=== PATIENT | male | born 1950 | race Caucasian/White ===

== ENCOUNTER 2016-04-24 09:07 | Emergency (ER) | payer OTHER ==
--- NOTE | 2016-04-24 09:56 | DIAGNOSTIC IMAGING REPORT ---
PROCEDURE: XR SHOULDER 2 OR MORE VW-LEFT INDICATION: Fell on ice, initial encounter TECHNIQUE: Three views. COMPARISON: None. FINDINGS: Nondisplaced fracture of the distal clavicle. Severe degenerative changes of the glenohumeral and AC joints. Old left rib fractures. Soft tissues are unremarkable IMPRESSION: 1. Nondisplaced distal left clavicle fracture 2. Severe glenohumeral and AC joint degenerative changes
--- NOTE | 2016-04-24 10:24 | ED NURSING NOTES ---
Clinical Report - Nurses [facility] [place] [address] 04/24/2016 9:08 [id number] TRI[facility] Triage time 09:Apr 24 2016. Acuity: LEVEL 3. Chief Complaint: INJURY TO LEFT SHOULDER. Alert. WILVER COMA SCORE: [place] Coma Scale: 15- eyes open spontaneously (4); best verbal response- oriented x 4 (5); best motor response- obeys commands (6). --09:38 Bonilla Mulligan R.N. 09:30 04/24/16. BP: 133/84. HR: 94. RR: 20. O2 saturation: 96%. Temp: 98.2 F (oral). Pain level now: 09/28. --09:38 Bonilla Mulligan R.N. Weight: 86.1 kg stated. Height/Length: 73 inches Per Patient. BMI: 25. --09:35 Bonilla Mulligan R.N. Medications Thyroid Hormone 1 pill, daily. --09:34 Bonilla Mulligan R.N. Allergies No Known Drug Allergy. --15:01 Bonilla Mulligan R.N. History Historian: patient. ( (L) Shoulder Pain after GLF on the ice this morning.). This occurred today (about 4 1/2 hours ago). Occurred at home. Mechanism of injury: fell. He has had weakness of the left arm. Treatment SONOGRAPHY TECHNICIAN: None. PAST MEDICAL HX: Tetanus status: unknown. Immunizations: status is unknown. SOCIAL HX: Heavy tobacco smoker (cigarette)- 1 pack per day. No drug use. No infectious disease exposure. ABUSE ASSESSMENT: No report of abuse. FALL RISK ASSESSMENT: Fall risk assessment completed. No fall risk identified. NUTRITIONAL RISK ASSESSMENT: The nutritional risk assessment revealed no deficiencies. FUNCTIONAL ASSESSMENT: Functional assessment: no impairments noted. LEARNING NEEDS ASSESSMENT: The learning needs assessment revealed no barriers. SKIN INTEGRITY ASSESSMENT: Skin integrity risk assessment completed. No skin integrity risk identified. --09:38 Bonilla Mulligan R.N. PROBLEMS: Fall. Contusion. Thyroid Disease. --09:37 Bonilla Mulligan R.N. ADDITIONAL SURGERIES: From war injuries. --09:37 Bonilla Mulligan R.N. Interventions ID band on patient. To treatment room. --09:38 Bonilla Mulligan R.N. PHYSICAL ASSESSMENT Ambulatory to room. GENERAL / NEURO / PSYCH: Oriented X 4. Appears in pain. EXTREMITIES: Limited ROM present in the left shoulder and left upper arm. Capillary refill is less than 2 seconds in the extremities. Extremity pulses are within normal limits. Neuro-vascular status intact to the extremity. Left shoulder: tenderness. SKIN: Skin intact. Skin is warm and dry. --09:39 Bonilla Mulligan R.N. NURSING PROGRESS NOTES Patient gowned. Reassurance given. Patient identifiers checked. Call light placed in reach. Side rails up x 1. Bed placed in lowest position. Brakes of bed on. Patient ready for evaluation- chart flagged and ED physician notified. --09:39 Bonilla Mulligan R.N. Patient walked to radiology with tech. (09:35 Apr 24 2016). --09:40 Bonilla Mulligan R.N. late entry - 10:10. ( arm sling applied to left arm.). --11:34 Monica Mendez, BRITTNEY Tech1 10:20 04/24/2016 Toradol (Ketorolac Tromethamine) IM 60 mg given. Given in the right ventral gluteus. Allergies verified and confirmed 5 rights. --15:00 Bonilla Mulligan R.N. DISPOSITION / DISCHARGE <<STRICKEN ENTRY-- 14:46 04/24/16. BP: 128/82. HR: 86. RR: 16. O2 saturation: 99% on room air. Temp: 98.6 F. Pain level now: 08/28. --14:50 Bonilla Mulligan R.N. --END STRIKE>> Other. --14:52 Bonilla Mulligan R.N. Departure time: 1040. --14:51 Bonilla Mulligan R.N. <<STRICKEN ENTRY-- 14:52 04/24/16. BP: 128/82. HR: 89. RR: 16. O2 saturation: 99% on room air. Temp: 98.6 F. Pain level now: 08/28. --14:53 Bonilla Mulligan R.N. --END STRIKE>> Correction. --14:54 Bonilla Mulligan R.N. 10:35 04/24/16. BP: 128/82. HR: 86. RR: 16. O2 saturation: 99% on room air. Temp: 98.6 F (oral). Pain level now: 08/28. --14:56 Bonilla Mulligan R.N. 10:40. Condition at departure: improved. No learning barriers present. Discharge instructions provided and reviewed with the patient. Reviewed medication(s) (prescription given to pt). Reviewed referral to family practice. Patient verbalized understanding. Written instructions provided in [place]er. The patient was discharged by the physician. He was discharged home. He left the Emergency Department ambulatory and via private vehicle. Patient driving. --14:58 Bonilla Mulligan R.N. Locked/Released at 04/24/2016 15:02 by Bonilla Mulligan R.N.
--- NOTE | 2016-04-24 10:24 | ED NURSING NOTES ---
Clinical Report - Nurses [facility] [place] [address] 04/24/2016 9:08 [id number] TRI[facility] Triage time 09:Apr 24 2016. Acuity: LEVEL 3. Chief Complaint: INJURY TO LEFT SHOULDER. Alert. WILVER COMA SCORE: [place] Coma Scale: 15- eyes open spontaneously (4); best verbal response- oriented x 4 (5); best motor response- obeys commands (6). --09:38 Bonilla Mulligan R.N. 09:30 04/24/16. BP: 133/84. HR: 94. RR: 20. O2 saturation: 96%. Temp: 98.2 F (oral). Pain level now: 09/28. --09:38 Bonilla Mulligan R.N. Weight: 86.1 kg stated. Height/Length: 73 inches Per Patient. BMI: 25. --09:35 Bonilla Mulligan R.N. Medications Thyroid Hormone 1 pill, daily. --09:34 Bonilla Mulligan R.N. Allergies No Known Drug Allergy. --15:01 Bonilla Mulligan R.N. History Historian: patient. ( (L) Shoulder Pain after GLF on the ice this morning.). This occurred today (about 4 1/2 hours ago). Occurred at home. Mechanism of injury: fell. He has had weakness of the left arm. Treatment RN ED: None. PAST MEDICAL HX: Tetanus status: unknown. Immunizations: status is unknown. SOCIAL HX: Heavy tobacco smoker (cigarette)- 1 pack per day. No drug use. No infectious disease exposure. ABUSE ASSESSMENT: No report of abuse. FALL RISK ASSESSMENT: Fall risk assessment completed. No fall risk identified. NUTRITIONAL RISK ASSESSMENT: The nutritional risk assessment revealed no deficiencies. FUNCTIONAL ASSESSMENT: Functional assessment: no impairments noted. LEARNING NEEDS ASSESSMENT: The learning needs assessment revealed no barriers. SKIN INTEGRITY ASSESSMENT: Skin integrity risk assessment completed. No skin integrity risk identified. --09:38 Bonilla Mulligan R.N. PROBLEMS: Fall. Contusion. Thyroid Disease. --09:37 Bonilla Mulligan R.N. ADDITIONAL SURGERIES: From war injuries. --09:37 Bonilla Mulligan R.N. Interventions ID band on patient. To treatment room. --09:38 Bonilla Mulligan R.N. PHYSICAL ASSESSMENT Ambulatory to room. GENERAL / NEURO / PSYCH: Oriented X 4. Appears in pain. EXTREMITIES: Limited ROM present in the left shoulder and left upper arm. Capillary refill is less than 2 seconds in the extremities. Extremity pulses are within normal limits. Neuro-vascular status intact to the extremity. Left shoulder: tenderness. SKIN: Skin intact. Skin is warm and dry. --09:39 Bonilla Mulligan R.N. NURSING PROGRESS NOTES Patient gowned. Reassurance given. Patient identifiers checked. Call light placed in reach. Side rails up x 1. Bed placed in lowest position. Brakes of bed on. Patient ready for evaluation- chart flagged and ED physician notified. --09:39 Bonilla Mulligan R.N. Patient walked to radiology with tech. (09:35 Apr 24 2016). --09:40 Bonilla Mulligan R.N. late entry - 10:10. ( arm sling applied to left arm.). --11:34 Monica Mendez, BRITTNEY Tech1 10:20 04/24/2016 Toradol (Ketorolac Tromethamine) IM 60 mg given. Given in the right ventral gluteus. Allergies verified and confirmed 5 rights. --15:00 Bonilla Mulligan R.N. DISPOSITION / DISCHARGE <<STRICKEN ENTRY-- 14:46 04/24/16. BP: 128/82. HR: 86. RR: 16. O2 saturation: 99% on room air. Temp: 98.6 F. Pain level now: 08/28. --14:50 Bonilla Mulligan R.N. --END STRIKE>> Other. --14:52 Bonilla Mulligan R.N. Departure time: 1040. --14:51 Bonilla Mulligan R.N. <<STRICKEN ENTRY-- 14:52 04/24/16. BP: 128/82. HR: 89. RR: 16. O2 saturation: 99% on room air. Temp: 98.6 F. Pain level now: 08/28. --14:53 Bonilla Mulligan R.N. --END STRIKE>> Correction. --14:54 Bonilla Mulligan R.N. 10:35 04/24/16. BP: 128/82. HR: 86. RR: 16. O2 saturation: 99% on room air. Temp: 98.6 F (oral). Pain level now: 08/28. --14:56 Bonilla Mulligan R.N. 10:40. Condition at departure: improved. No learning barriers present. Discharge instructions provided and reviewed with the patient. Reviewed medication(s) (prescription given to pt). Reviewed referral to family practice. Patient verbalized understanding. Written instructions provided in [place]. The patient was discharged by the physician. He was discharged home. He left the Emergency Department ambulatory and via private vehicle. Patient driving. --14:58 Bonilla Mulligan R.N. Locked/Released at 04/24/2016 15:02 by Bonilla Mulligan R.N.
--- NOTE | 2016-04-24 10:24 | ED ORDER SUMMARY ---
..... Patient: ALANNA MALIK OrderSheet [facility] VisitID: [id number] [place] [address] 65y, M Registration Date/Time: 04/24/2016 ORDER SHEET Weight: 86.1 kg (stated) Allergies: No Known Drug Allergy GENERAL ORDERS: Shoulder 2V or more Left Urgent (09:29 04/24/2016 Neal Ramsay verbal order read back to Carmenza Hodges) (Ack 9:48 LNations ER Tech1) (10:34 Neal R.N.) Sling - arm (10:19 04/24/2016 Carmenza Hodges) (10:34 Neal Campbell.N.) MEDICATION ORDERS: Toradol IM 60 mg (NOW) (14:59 04/24/2016 Neal Ramsay verbal order read back to Carmenza Hodges) (15:00 Neal R.N.) IV FLUIDS: Toradol IV 30 mg (NOW) (09:44 04/24/2016 Carmenza Hodges) (Cancelled: Other10:35 Neal R.NCassandra) ORDER SHEET NOTES: [Electronically signed by Bonilla Mulligan R.N. (15:02 04/24/2016)] [Electronically signed by Mckinley King Dr. (13:37 04/30/2016)] [Electronically locked/signed by Bonilla Mulligan R.N. (15:02 04/24/2016)]
--- NOTE | 2016-04-24 10:24 | ED CLINICAL REPORT ---
Clinical Report - Physicians/Mid Levels [facility] [address] [place] [address] 04/24/2016 9:08 Patient: ALANNA MAILK Arrived- By private vehicle. Historian- patient. HISTORY OF PRESENT ILLNESS Chief Complaint: Injury to left shoulder. The injury happened just prior to arrival and today. Occurred at home. Fell (slipped on ice walking). Patient is experiencing moderate pain. Patient denies injury to the head or neck. No other injury. ( reports no pain or injury to the head, neck, chest, abdomen, pelvis, back, or other extremities.). REVIEW OF SYSTEMS No tingling, numbness or weakness. All systems otherwise negative, except as recorded above. PAST HISTORY See nurses notes. Tetanus immunization status is up-to-date. SOCIAL HISTORY Smoker- current status unknown. No alcohol use or drug use. No recent travel. Is a local resident. PHYSICAL EXAM Appearance: Alert. Oriented X3. No acute distress. Head: Head atraumatic. No scalp tenderness. No swelling of the head or ecchymosis of the head. Eyes: Pupils equal, round and reactive to light. Eyes normal inspection. (No Aj sign or raccoon eyes). ENT: No hemotympanum. Ears normal. Nose normal. Pharynx normal. Neck: Normal inspection. Neck supple. C-spine non-tender. CVS: Normal heart rate and rhythm. Heart sounds normal. Pulses normal. Respiratory: No respiratory distress. Breath sounds normal. Chest nontender. Abdomen: No visible injury. Soft and nontender. Bowel sounds normal. No mass. Back: Normal inspection. No tenderness. ROM normal. No vertebral point tenderness. (and no step-offs or crepitus.). Skin: Skin intact. Skin warm and dry. Normal skin color. Normal skin turgor. Extremities: (Patient has mild tenderness over the before meals joint and distal clavicle. No crepitus. No bony other abnormalities. Patient is neurovascularly intact. Neck, arm, elbow, wrist, forearm, hands are nontender and atraumatic. Strength is 5 out of 5 and symmetrical to the contralateral side. compartments are soft. No overlying skin changes.). Neuro, Vascular and Tendons: Sensation intact. Motor intact. Vascular status intact. Tendon function intact. Tendon visualized, uninjured. Neuro: Oriented X 3. No motor deficit. No sensory deficit. PROGRESS AND PROCEDURES Course of Care: The patient is a pleasant 65-year-old male with no pertinent past medical history presenting for evaluation of ground-level fall after slipping on the ice. Patient had no preceding symptoms. fall is purely mechanical. Patient will be evaluated with radiographs of the left shoulder that were ordered on triage. The patient is resting in bed in no acute distress. No neurovascular compromise at this time. At this time differential diagnosis includes clavicular fracture, before meals joint separation, or Proximal humerus fracture. Workup shows patient to have distal clavicular fracture. Minimally displaced. Had discussion with patient in regards to workup, diagnosis, home care, follow-up, and return precautions. All questions answered. The patient expressed understanding of these instructions and is agreeable to them. Prior to patient's discharge, he was noted to be in a sling. Patient is resting in no acute distress. Unable to provide patient with sedating type medications as he is reporting to be driving home by himself. Patient's a good outpatient candidate. Disposition: Discharged. Condition: good. CLINICAL IMPRESSION 04/24/2016 09:30 BP: 133/84. HR: 94. RR: 20. O2 saturation: 96%. Temp: 98.2 F. Pain level now: 6/10. Blood pressure normal. Oxygen saturation normal. Non-displaced left distal clavicle fracture (acute). INSTRUCTIONS Limit use of left hand until released (by your doctor). Warnings: GENERAL WARNINGS: Return or contact your physician immediately if your condition worsens or changes unexpectedly, if not improving as expected, or if other problems arise. Specifically return if pain, vomiting, bleeding, breathing difficulty or fever. Your Current Medications: CONTINUE TAKING THE FOLLOWING MEDICATIONS: Thyroid Hormone* : 1 pill daily. Prescription Medications: Percocet 5 mg/325 mg: take 1 tablet orally every 6 hours as needed for pain. Dispense twenty (20). No refill. Substitution is permissible. Follow-up: Return to the emergency department as needed. Follow up with your doctor in three days. Reason for referral: recheck today's concerns. Summary of care provided to patient via paper. Follow up with doctor. Screening today revealed the patient's blood pressure to be in the normal range. The patient should follow up with a primary care provider for blood pressure management. Understanding of the discharge instructions verbalized by patient. Follow-up with: Follow up. Reason for referral: Call this office for follow up: [phone]. Summary of care provided to patient via paper. (Electronically signed by Mckinley King Dr. 04/30/2016 13:37)
--- NOTE | 2016-04-24 10:24 | ED ORDER SUMMARY ---
..... Patient: ALANNA MALIK OrderSheet [facility] VisitID: [id number] [place] [address] 65y, M Registration Date/Time: 04/24/2016 ORDER SHEET Weight: 86.1 kg (stated) Allergies: No Known Drug Allergy GENERAL ORDERS: Shoulder 2V or more Left Urgent (09:29 04/24/2016 Neal Ramsay verbal order read back to Carmenza Hodges) (Ack 9:48 LNations ER Tech1) (10:34 Neal R.N.) Sling - arm (10:19 04/24/2016 Carmenza Hodges) (10:34 Neal Campbell.N.) MEDICATION ORDERS: Toradol IM 60 mg (NOW) (14:59 04/24/2016 Neal Ramsay verbal order read back to Carmenza Hodges) (15:00 Neal R.N.) IV FLUIDS: Toradol IV 30 mg (NOW) (09:44 04/24/2016 Carmenza Hodges) (Cancelled: Other10:35 Neal R.NCassandra) ORDER SHEET NOTES: [Electronically signed by Bonilla Mulligan R.N. (15:02 04/24/2016)] [Electronically signed by Mckinley King Dr. (13:37 04/30/2016)] [Electronically locked/signed by Bonilla Mulligan R.N. (15:02 04/24/2016)]
--- NOTE | 2016-04-30 13:38 | ED MAR SUMMARY ---
..... Medication Administration Record [address] [place] [address] Patient: ALANNA MALIK Visit ID: [id number] 65y, M Weight: 86.1 kg Height/Length: 73 in BMI: 25 ALLERGIES: No Known Drug Allergy Given 10:20 04/24/2016 Bonilla Mulligan R.N. Medication Administered: TORADOL [IM] (KETOROLAC TROMETHAMINE), Dose: 60 mg IM. Medication Ordered: Toradol IM 60 mg (NOW).
--- NOTE | 2016-04-30 13:38 | ED MED RECONCILIATION SUMMARY ---
Patient: ALANNA MALIK Medication Reconciliation Report [facility] VisitID: [id number] [address] [place] [address] 65y, M Registration Date/Time: 04/24/2016 Weight: 86.1 kg Height/Length: 73 in. BMI: 25.0 ALLERGIES: No Known Drug Allergy The patient's Home Medications are listed below: CONTINUE TAKING THE FOLLOWING MEDICATIONS: Thyroid Hormone 1 pill, daily The source(s) of the original Home Medication information: Not obtained. The following Medications were given to the patient in the Emergency Department: Toradol [IM] IM 60 mg, administered: 04/24/2016 10:20:00 AM The following Medications were prescribed to the patient: Percocet 5 mg/325 mg: take 1 tablet orally every 6 hours as needed for pain. Dispense twenty (20). No refill. Substitution is permissible. -- Mckinley King Dr.
--- NOTE | 2016-04-30 13:38 | ED DISCHARGE INSTRUCTIONS ---
Patient: ALANNA MALIK General Instructions [facility] VisitID: [id number] [place] [address] 65y, M Registration Date/Time: 04/24/2016 04/24/2016 09:30 BP: 133/84. HR: 94. RR: 20. O2 saturation: 96%. Temp: 98.2 F. Pain level now: 6/10. Blood pressure normal. Oxygen saturation normal. Non-displaced left distal clavicle fracture (acute). INSTRUCTIONS Limit use of left hand until released (by your doctor). Warnings: GENERAL WARNINGS: Return or contact your physician immediately if your condition worsens or changes unexpectedly, if not improving as expected, or if other problems arise. Specifically return if pain, vomiting, bleeding, breathing difficulty or fever. Your Current Medications: CONTINUE TAKING THE FOLLOWING MEDICATIONS: Thyroid Hormone* : 1 pill daily. Prescription Medications: Percocet 5 mg/325 mg: take 1 tablet orally every 6 hours as needed for pain. Dispense twenty (20). No refill. Substitution is permissible. Follow-up: Return to the emergency department as needed. Follow up with your doctor in three days. Reason for referral: recheck today's concerns. Summary of care provided to patient via paper. Follow up with doctor. Screening today revealed the patient's blood pressure to be in the normal range. The patient should follow up with a primary care provider for blood pressure management. Understanding of the discharge instructions verbalized by patient. Follow-up with: Follow up. Reason for referral: Call this office for follow up: [phone]. Summary of care provided to patient via paper. ADDITIONAL INFORMATION Fracture:Clavicle There is a break (fracture) in your collarbone. This will cause swelling, pain and bruising. The first 3-4 weeks will be the most painful because deep breathing, coughing or changing position from sitting to lying down, may cause the broken ends to move slightly. The fracture will heal in about 4-6 weeks. In children this injury will heal by reshaping the bone back to normal. In adults, a noticeable bump in the bone may remain. Treatment is with a sling or shoulder immobilizer (special type of arm sling). This supports your arm and reduces pain. Home Care 1) Apply an ice pack (ice cubes in a plastic bag, wrapped in a towel) over the injured area for 20 minutes every 1-2 hours the first day. Continue with ice packs 3-4 times a day for the next two days, then as needed for the relief of pain and swelling. 2) If a sling or shoulder immobilizer was provided, wear it for comfort. You may remove it for bathing and when you go to sleep. Take your arm out of the sling for a little while each day and move your shoulder to avoid stiffness. 3) No heavy lifting or raising the injured arm overhead until you are pain free. No sports or P.E. for at least four weeks or until cleared by your doctor to do so. 4) You may use acetaminophen (Tylenol) or ibuprofen (Motrin, Advil) to control pain, unless another pain medicine was prescribed. [ NOTE : If you have chronic liver or kidney disease or ever had a stomach ulcer or GI bleeding, talk with your doctor before using these medicines.] Follow Up with your doctor within one week to be sure the bone is healing properly, or as advised by our staff. [NOTE: A radiologist will review any X-rays that were taken. We will notify you of any new findings that may affect your care.] Get Prompt Medical Attention if any of the following occur: -- Increased swelling or large area of bruising over the collar bone -- Fingers become swollen, cold, blue, numb or tingly -- Shortness of breath, dizziness or weakness Oxycodone Hydrochloride, Acetaminophen Oral tablet What is this medicine? ACETAMINOPHEN; OXYCODONE (a set a WENDY [place] fen; ox i KOE done) is a pain reliever. It is used to treat mild to moderate pain. How should I use this medicine? Take this medicine by mouth with a full glass of water. Follow the directions on the prescription label. Take your medicine at regular intervals. Do not take your medicine more often than directed. Talk to your principal network architect regarding the use of this medicine in children. Special care may be needed. Patients over 65 years old may have a stronger reaction and need a smaller dose. What side effects may I notice from receiving this medicine? Side effects that you should report to your doctor or health child care center administrator as soon as possible: allergic reactions like skin rash, itching or hives, swelling of the face, lips, or tongue breathing difficulties, wheezing confusion light headedness or fainting spells severe stomach pain yellowing of the skin or the whites of the eyes Side effects that usually do not require medical attention (report to your doctor or health child care center administrator if they continue or are bothersome): dizziness drowsiness nausea vomiting What may interact with this medicine? alcohol antihistamines barbiturates like amobarbital, butalbital, butabarbital, methohexital, pentobarbital, phenobarbital, thiopental, and secobarbital benztropine drugs for bladder problems like solifenacin, trospium, oxybutynin, tolterodine, hyoscyamine, and methscopolamine drugs for breathing problems like ipratropium and tiotropium drugs for certain stomach or intestine problems like propantheline, homatropine methylbromide, glycopyrrolate, atropine, belladonna, and dicyclomine general anesthetics like etomidate, ketamine, nitrous oxide, propofol, desflurane, enflurane, halothane, isoflurane, and sevoflurane medicines for depression, anxiety, or psychotic disturbances medicines for sleep muscle relaxants naltrexone narcotic medicines (opiates) for pain phenothiazines like perphenazine, thioridazine, chlorpromazine, mesoridazine, fluphenazine, prochlorperazine, promazine, and trifluoperazine scopolamine tramadol trihexyphenidyl What if I miss a dose? If you miss a dose, take it as soon as you can. If it is almost time for your next dose, take only that dose. Do not take double or extra doses. Where should I keep my medicine? Keep out of the reach of children. This medicine can be abused. Keep your medicine in a safe place to protect it from theft. Do not share this medicine with anyone. Selling or giving away this medicine is dangerous and against the law. Store at room temperature between 20 and 25 degrees C (68 and 77 degrees F). Keep container tightly closed. Protect from light. This medicine may cause accidental overdose and if it is taken by other adults, children, or pets. Flush any unused medicine down the toilet to reduce the chance of harm. Do not use the medicine after the expiration date. What should I tell my health care provider before I take this medicine? They need to know if you have any of these conditions: brain tumor Crohn's disease, inflammatory bowel disease, or ulcerative colitis drink more than 3 alcohol containing drinks per day drug abuse or addiction head injury heart or circulation problems kidney disease or problems going to the bathroom liver disease lung disease, asthma, or breathing problems an unusual or allergic reaction to acetaminophen, oxycodone, other opioid analgesics, other medicines, foods, dyes, or preservatives or trying to get breast-feeding What should I watch for while using this medicine? Tell your doctor or health child care center administrator if your pain does not go away, if it gets worse, or if you have new or a different type of pain. You may develop tolerance to the medicine. Tolerance means that you will need a higher dose of the medication for pain relief. Tolerance is normal and is expected if you take this medicine for a long time. Do not suddenly stop taking your medicine because you may develop a severe reaction. Your body becomes used to the medicine. This does NOT mean you are addicted. Addiction is a behavior related to getting and using a drug for a non-medical reason. If you have pain, you have a medical reason to take pain medicine. Your doctor will tell you how much medicine to take. If your doctor wants you to stop the medicine, the dose will be slowly lowered over time to avoid any side effects. You may get drowsy or dizzy. Do not drive, use machinery, or do anything that needs mental alertness until you know how this medicine affects you. Do not stand or sit up quickly, especially if you are an older patient. This reduces the risk of dizzy or fainting spells. Alcohol may interfere with the effect of this medicine. Avoid alcoholic drinks. There are different types of narcotic medicines (opiates) for pain. If you take more than one type at the same time, you may have more side effects. Give your health care provider a list of all medicines you use. Your doctor will tell you how much medicine to take. Do not take more medicine than directed. Call emergency for help if you have problems breathing. The medicine will cause constipation. Try to have a bowel movement at least every 2 to 3 days. If you do not have a bowel movement for 3 days, call your doctor or health child care center administrator. Do not take Tylenol (acetaminophen) or medicines that have acetaminophen with this medicine. Too much acetaminophen can be very dangerous. Many nonprescription medicines contain acetaminophen. Always read the labels carefully to avoid taking more acetaminophen. You have been given the following additional information: Fracture, Clavicle Oxycodone Hydrochloride, Acetaminophen Oral tablet Limit use of left hand until released (by your doctor). (Electronically signed by Mckinley King Dr. 04/30/2016 13:37)
--- NOTE | 2016-04-30 13:38 | ED MED RECONCILIATION SUMMARY ---
Patient: ALANNA MALIK Medication Reconciliation Report [facility] VisitID: [id number] [address] [place] [address] 65y, M Registration Date/Time: 04/24/2016 Weight: 86.1 kg Height/Length: 73 in. BMI: 25.0 ALLERGIES: No Known Drug Allergy The patient's Home Medications are listed below: CONTINUE TAKING THE FOLLOWING MEDICATIONS: Thyroid Hormone 1 pill, daily The source(s) of the original Home Medication information: Not obtained. The following Medications were given to the patient in the Emergency Department: Toradol [IM] IM 60 mg, administered: 04/24/2016 10:20:00 AM The following Medications were prescribed to the patient: Percocet 5 mg/325 mg: take 1 tablet orally every 6 hours as needed for pain. Dispense twenty (20). No refill. Substitution is permissible. -- Mckinley King Dr.
--- NOTE | 2016-04-30 13:38 | ED MAR SUMMARY ---
..... Medication Administration Record [address] [place] [address] Patient: ALANNA MALIK Visit ID: [id number] 65y, M Weight: 86.1 kg Height/Length: 73 in BMI: 25 ALLERGIES: No Known Drug Allergy Given 10:20 04/24/2016 Bonilla Mulligan R.N. Medication Administered: TORADOL [IM] (KETOROLAC TROMETHAMINE), Dose: 60 mg IM. Medication Ordered: Toradol IM 60 mg (NOW).
== END 2016-04-24 10:40 | disposition home or self-care (01) ==
LOC: ED SRH 09:07
DX: S42.035A Nondisplaced fracture of lateral end of left clavicle, initial encounter for closed fracture (principal); W00.0XXA Fall on same level due to ice and snow, initial encounter; Y93.01 Activity, walking, marching and hiking; Y92.009 Unspecified place in unspecified non-institutional (private) residence as the place of occurrence of the external cause; F17.210 Nicotine dependence, cigarettes, uncomplicated; Z79.890 Hormone replacement therapy